=== PATIENT | female | born 1970 | race Caucasian/White ===

== ENCOUNTER 2021-04-17 12:16 | Outpatient (CLI) | payer BC ==
--- NOTE | 2021-04-18 15:24 | Mammography Report ---
UNILATERAL LEFT DIGITAL DIAGNOSTIC MAMMOGRAM 3D/2D: 04/17/2021 CLINICAL: Short term follow up for the left breast. Patient returns for a 6 month follow up of the le ft breast. Comparison is made to exams dated: 11/28/2020 breast MRI, 09/27/2020 ultrasound, 09/27/2020 mammogram, 08/28/2020 mammogram, 02/01/2019 mammogram, and 01/14/2019 mammogram - [facility]. The tissue of l eft breast is heterogeneously dense. This may lower the sensitivity of mammography. The asymmetry in the left breast posterior depth central to the nipple seen on the craniocaudal view only is no longer seen. No other significant masses or calcifications are seen in the breast. IMPRESSION: INCOMPLETE: NEEDS ADDITIONAL IMAGING EVALUATION An ultrasound is recommended to confirm the no longer seen asymmetry in the left breast posterior dep th central to the nipple seen on the craniocaudal view only. This exam was interpreted at Station ID: [id number]. NOTE: For mammograms, a report in lay terms will be sent to the patient. Approximately 15% of breast malignancies will not be visualized mammographically. In the management of a palpable breast mass, a negative mammogram must not discourage biopsy of a clinically suspicious lesion. Electronically Signed By: Davin Leo acr/richard:04/17/2021 13:24:04 ACR BI-RADS Category 0: Incomplete 3340F PARENCHYMAL PATTERN: (D) - The breast(s) demonstrate(s) heterogeneously dense fibroglandular parenchy ma. BI-RADS CATEGORY: (0) - 0 Ultrasound [id number] Immediate follow-up LATERALITY: (B)
--- NOTE | 2021-04-18 15:24 | Ultrasound Report ---
LIMITED ULTRASOUND OF LEFT BREAST: 04/17/2021 CLINICAL: Short term follow up for the left breast. H/O complex cluster of cysts. Comparison is made to exams dated: 04/17/2021 mammogram - [facility], 11/28/2020 [facility] MRI, 09/27/2020 ultrasound, 09/27/2020 mammogram, 08/28/2020 mammogram, and 02/01/2019 mammogram - [facility]. Color flow and real-time ultrasound of the left breast 3 o'clock region were performed. Garrett scale images of the real-time examination were reviewed. There is a benign 0.6 cm x 0.3 cm x 0.3 cm cluster of cysts in the left breast at 3 o'clock anterior depth 2 cm from the nipple. This cluster of cysts displays no posterior acoustic shadowing or enhanc ement. Color flow imaging demonstrates that there is no vascularity present. IMPRESSION: BENIGN There is no sonographic evidence of malignancy. The 0.6 cm x 0.3 cm x 0.3 cm cluster of cysts in the left breast resembles a complex cyst and is unch anged and benign. Return to annual mammogram screening schedule is recommended. This exam was interpreted at Station ID: [id number]. Electronically Signed By: Davin Leo acr/:04/17/2021 14:07:22 Ultrasound BI-RADS: 2 Benign BI-RADS CATEGORY: (2) - 2 Mammogram [id number] return to screening LATERALITY: (B)
== END 2021-04-17 12:17 | disposition home or self-care (01) ==
LOC: DI 12:16
PROVIDERS: ATTEND Surgery
DX: R92.8 Other abnormal and inconclusive findings on diagnostic imaging of breast (principal); N60.02 Solitary cyst of left breast